=== PATIENT | female | born 1935 | race Caucasian/White ===

== ENCOUNTER 2024-03-23 18:18 | Emergency (ER) | payer MEDICARE, SELFPAY ==
[2024-03-23 18:27] VITALS: BP 144/67; BMI 29.6
[2024-03-23 18:57] LABS: % Basophils 0.6 % (0-2); % Eosinophils 11.9 % (0-6); % Lymphocytes 22.8 % (20.5-51.1); % Monocytes 9.2 % (1.7-9.3); % Neutrophils 55.5 % (42.2-75.2); Absolute Eosinophils 0.8 10^3/uL (0-0.7); Absolute Lymphocytes 1.5 10^3/uL (1.2-3.4); Absolute Monocytes 0.6 10^3/uL (0.1-0.6); Absolute Neutrophils 3.7 10^3/uL (1.4-6.5); Hematocrit 39.9 % (37.0-47.0); Hemoglobin 13.2 g/dL (12.0-16.0); Mean Corp Hgb Conc. 33.1 g/dL (33.0-37.0); Mean Corpuscular Hgb 30.4 pg (27.0-31.0); Mean Corpuscular Volume 91.9 fL (81.0-99.0); Nucleated Red Blood Cells % 0 %; Red Blood Cell Count 4.34 10^6/uL (4.20-5.40); Red Cell Dist. Width 13.1 % (11.5-14.5); White Blood Cell Count 6.6 10^3/uL (4.8-10.8)
[2024-03-23 19:14] LABS: ALT (SGPT) 26 U/L (0-35); AST (SGOT) 34 U/L (14-36); Albumin 4.2 g/dl (3.5-5.0); Alkaline Phosphatase 68 U/L (38-126); Blood Urea Nitrogen 34 mg/dl (7-17); Calcium 10.3 mg/dl (8.4-10.2); Carbon Dioxide 26 mmol/L (22-30); Chloride 106 mmol/L (98-107); Estimated Creatinine Clearance 67 ml/min; Glucose 111 mg/dl (70-99); Sodium 139 mmol/L (135-145); Total Bilirubin 0.7 mg/dl (0.2-1.3); Total Protein 7.7 g/dl (6.3-8.2); eGFR > 60.00
[2024-03-23 19:19] LABS: Troponin I < 0.012 ng/ml
[2024-03-23 22:05] VITALS: BP 180/81
--- NOTE | 2024-03-23 22:10 | ED.GENMED ---
History of Present Illness
<RONIT Neff - Last Filed: 03/23/24 22:26>
General
Chief Complaint: Fainting Sensation
Source: patient
Exam Limitations: none
Time Seen by Provider: 03/23/24 22:00
Travel History
Have you had any contact with someone who has COVID-19?: No
Do you have any symptoms of coronavirus? Fever > 100 degrees, chills, cough, shortness of breath, sore throat, loss of taste or smell, muscle aches, or headache?: No
History of Present Illness
History of Present Illness:
This is an 89 YO F with a PMH of COPD, HTN, and lower extremity edema presenting here today with fainting sensation x 5 hours. Pt reports she was at dinner, broke out in a cold sweat, and felt faint. She denies any falls or loss of consciousness.
She denies N,V, and diarrhea. She denies chest pain or SOB. She reports this has never happened before. She mentioned that she never drinks water due to being on the water pill.
Pt denies recent surgeries, hospitalizations, or trauma.
Past History
<RONIT Neff - Last Filed: 03/23/24 22:26>
Past History
ED Past Medical History: COPD, HTN and Other (chronic sinusitis, anxiety, Right diaphram paralized, IBS)
ED Past Surgical History: Appendectomy, Cholecystectomy, Gynecological (Total Hysterectomy) and Orthopedic (Right total knee replacement)
Social History
Tobacco: Non-smoker
Alcohol: None
Drug: None
Personal:
Living: with family
Employment: Not employed
Family History
Family History: Other (mother w/ stomach cancer 81 yo, father w/ prostate ca)
Phy Exam
<RONIT Neff - Last Filed: 03/23/24 22:26>
Physical Exam
Physical Exam:
Normal S1 and S2, normal rate and rhythm, breath sounds are equal bilaterally, lower extremity edema present, bilaterally
General Physical Exam
General Presentation: mild distress
General age: appears stated age
General Skin: warm and dry
General Habitus: normal
General Mental: alert
Cardiovascular Exam
Cardiovascular Exam: regular rate/rhythm and no murmur
Pulmonary Exam
Pulmonary Exam: lungs clear
Gastrointestinal Exam
Gastrointestinal Exam: non tender and soft
Course
<Aliya Perez [facility] - Last Filed: 03/23/24 22:26>
Orders/Labs/Results
Orders:
Orders
03/23/24 18:30
Electrocardiogram (*1) Urgent
Reason for Study: Chest Pain
EKG- Treatment ONCE
03/23/24 18:44
Complete Blood Count/With Diff Urgent
Comprehensive Metabolic Panel Urgent
Troponin I Urgent
03/23/24 22:20
Orthostatic VS- Treatment ONCE
03/23/24 23:00
Troponin I Urgent
Abnormal Lab Results
03/23/24
18:44
Absolute Eos (auto) 0.8 H 10^3/uL
(0-0.7)
Eosinophils % 11.9 H %
(0-6)
BUN 34 H mg/dl
(7-17)
Glucose 111 H mg/dl
(70-99)
Calcium 10.3 H mg/dl
(8.4-10.2)
03/23/24 18:44
03/23/24 18:44
Vital Signs
Initial and Last Documented VS:
Initial Vital Signs
Temp Pulse Resp BP Pulse Ox
98.2 F 71 16 144/67 99
03/23/24 18:27 03/23/24 18:27 03/23/24 18:27 03/23/24 18:27 03/23/24 18:27
Last Documented Vital Signs
Temp Pulse Resp BP Pulse Ox
98.2 F 76 23 168/92 96
03/23/24 18:27 03/23/24 23:30 03/23/24 23:30 03/23/24 22:37 03/23/24 23:30
<Virgen Ceballos, DO - Last Filed: 03/23/24 23:56>
Orders/Labs/Results
Orders:
Orders
03/23/24 18:30
Electrocardiogram (*1) Urgent
Reason for Study: Chest Pain
EKG- Treatment ONCE
03/23/24 18:44
Complete Blood Count/With Diff Urgent
Comprehensive Metabolic Panel Urgent
Troponin I Urgent
03/23/24 22:20
Orthostatic VS- Treatment ONCE
03/23/24 23:00
Troponin I Urgent
Abnormal Lab Results
03/23/24
18:44
Absolute Eos (auto) 0.8 H 10^3/uL
(0-0.7)
Eosinophils % 11.9 H %
(0-6)
BUN 34 H mg/dl
(7-17)
Glucose 111 H mg/dl
(70-99)
Calcium 10.3 H mg/dl
(8.4-10.2)
03/23/24 18:44
03/23/24 18:44
Vital Signs
Initial and Last Documented VS:
Initial Vital Signs
Temp Pulse Resp BP Pulse Ox
98.2 F 71 16 144/67 99
03/23/24 18:27 03/23/24 18:27 03/23/24 18:27 03/23/24 18:27 03/23/24 18:27
Last Documented Vital Signs
Temp Pulse Resp BP Pulse Ox
98.2 F 76 23 168/92 96
03/23/24 18:27 03/23/24 23:30 03/23/24 23:30 03/23/24 22:37 03/23/24 23:30
<RONIT Neff - Last Filed: 03/23/24 22:26>
MDM/Problems Addressed
Differential Diagnosis Includes:
Dehydration, Arrhythmia, Hypotension, Anxiety,
MDM/Problems Addressed:
Faint, lightheaded since 5:30 P.M.
Chronic conditions affecting care: HTN and COPD
<RONIT Neff - Last Filed: 03/23/24 22:26>
*Critical Care Note
Total Time (30-74mins, 75-104mins- exclusive of procedures): Not Applicable
<Virgen Ceballos DO - Last Filed: 03/23/24 23:56>
*Pulse Oximetry
Patient hypoxic: no
*EKG
Interpreted by ED Provider?: Yes
Interpretation: normal
Comparison EKG: no changes
Rate: normal
Rhythm: sinus
[place]: normal axis
Interval: normal interval
QRS Pattern: normal QRS
Ischemia: no ischemia
*[employer] Interpretation
Rate: normal
Interpretation: normal
Rhythm: sinus
ED Attending Note
<RONIT Neff - Last Filed: 03/23/24 22:26>
-
Portions of this chart may have been created with voice recognition software.� Occasional wrong word or��sound alike� substitutions may have occurred due to the inherent limitations of voice recognition software.
<Virgen Ceballos DO - Last Filed: 03/23/24 23:56>
ED Attending Note
Patient seen and examined by attending physician: Yes
I performed the substantive portion of visit, reviewed & personally made and approve the management plan that is documented in note by myself or GERMAN.: Yes
I performed a history and physical exam of patient and discussed management with resident, I reviewed resident's note and agree with documented findings and plan of care.: Yes
ED Attending Note:
This is a eufemia 89-year-old woman who has history of hypertension, COPD, chronic bilateral lower extremity edema who resides in independent living at [facility]. While at dinner tonight around 6 PM, while eating soup patient developed sudden
onset of profuse diaphoresis, lightheadedness, feeling that she was going to pass out. She denies chest pain or palpitations, no shortness of breath, no nausea nor vomiting, no abdominal nor back pain. She repositioned herself, lowering her head
to her knees and slowly began to feel better. Overall symptoms lasted perhaps 10 minutes. She was evaluated by commanding officer motorized squad from [facility] and was noted to have an elevated blood pressure with systolic over 200 but she admits that she was already
starting to feel improved when EMS arrived. Prehospital Accu-Chek 127.
No history of similar episodes in the past and since that episode patient has been feeling well without recurrence.
She denies recent change in medications, no recent GI illness. No change in weight. Her appetite has been good, she has not skipped any meals recently.
She does admit to feeling somewhat hot over the past 2 days with hot humid weather and has avoided turning on her air conditioner due to concerns within feeling too cold.
She also admits to chronically limited oral intake 'I do not drink water' due to chronic urinary frequency.
Previous ED records note most recent previous ED visit April 2021 with complaints of diarrhea, bloody stools, CAT scan showed colitis with treated with outpatient antibiotics without recurrence.
GENERAL: 89-year-old woman appears her stated age, bright and alert, pleasant, appears in no acute distress.
EYE: pupils equal and reactive. anicteric
NECK: Supple, nontender, no meningismus, no significant adenopathy.
ENT: posterior pharynx is clear, oral mucosa is minimally dry. No rhinorrhea.
CARDIAC: Regular rate and rhythm. no murmur.
LUNGS: Clear breath sounds bilaterally, no acute respiratory distress, no wheezes/rales/rhonchi
ABDOMEN: Rotund, soft, nondistended, without focal tenderness, no r/g, no cvat. normoactive BS.
NEUROLOGICAL: Alert and oriented x3, no focal neuro deficits. Cranial nerves II through XII grossly intact. Motor strength 5/5 bilaterally. Gross sensation is intact.
SKIN: Warm and dry, normal color, skin intact. No rash.
MUSCULOSKELETAL: Mild to moderate chronic appearing nonpitting edema bilateral lower extremities, peripheral pulses are full and equal b/l. No palpable tenderness.
PSYCH: Normal and appropriate interaction.
History and exam concerning for near syncopal event. Concern for vasovagal episode, tachy-arrhythmia, electrolyte abnormality, ACS. Acute neurologic event is less likely.
It is reassuring that patient has been asymptomatic since arrival to the ED near 4 hours ago.
Labs showed normal CBC. Chemistries are unremarkable save for moderately elevated BUN of 34 which has trended up from previous and what appears to be her baseline BUN of 20-25.
Troponin is negative.
EKG shows normal sinus rhythm, normal axis, normal intervals, no acute ST-T wave abnormalities. Overall similar and unchanged from previous EKG 2019 save for heart rate has decreased from 92 to now 71.
Monitor shows normal sinus rhythm without ectopy.
Will check orthostatic vital signs and plan to repeat troponin.
Would recommend increasing fluid intake as near syncopal event may be mild dehydration in nature.
03/23/2024 2355 PM
Patient remains asymptomatic and eager to be discharged to home.
Orthostatic vital signs are negative.
Repeat troponin is negative.
Monitor continues to show normal sinus rhythm without ectopy.
As above, recommend patient increase her clear liquid intake on a daily basis.
Prompt follow-up with PCP at [facility] for recheck.
Return precautions discussed.
Discharge Plan
Departure
Patient Disposition: Home (Routine Discharge)
Date of Disposition: 03/23/24
Time of Disposition: 23:52
Patient with high blood pressure during this ER visit?: No
Condition: Good
Discharge Problem:
Near syncope
Instructions: Near Fainting (DC)
Prescriptions:
No Action
losartan 50 MG tablet
50 mg PO DAILY
aspirin 81 MG tablet,delayed release (DR/EC)
81 mg PO Q48H
furosemide 20 MG tablet
20 mg PO Q48H
ipratropium bromide 1 SPRAY spray,non-aerosol
1 spray intranasal DAILY
budesonide-formoterol [Symbicort] 1 PUFF HFA aerosol inhaler
2 puff inhalation R BID
cholecalciferol (vitamin D3) 2,000 UNITS tablet
2,000 units PO DAILY
propylene glycol [Systane Balance] 10 ML drops
1 drp BOTH EYES DAILY
levofloxacin 500 MG tablet
500 mg PO DAILY Qty: 9 0RF
metronidazole 500 MG tablet
500 mg PO TID Qty: 29 0RF
Referrals:
Kassie Trotter CRNP [Family Provider] - Call in 1-3 days for appt
Activity Restrictions/Additional Instructions:
I want you to try and increase your clear liquid intake on a daily basis, add 1 glass of water or decaffeinated tea/flavored water on a daily basis.
Follow-up with your primary care physician for recheck.
Interventions
Interventions:
*Risk Screen - Suicide Last Done: 03/23/24 18:27
*General Assessment Last Done: 03/23/24 22:06
*Neglect/Abuse Screening Last Done: 03/23/24 18:27
ED- Fall Risk Assessment Last Done: 03/23/24 18:27
*ED COVID-19 Vaccine History Last Done: 03/23/24 22:06
ED- Cardiac Assessment Last Done: 03/23/24 22:07
ED- Neurological Assessment Last Done: 03/23/24 22:07
Discharge Date and Time
Print Language: ARABIC
[2024-03-23 22:32] VITALS: BP 157/81
[2024-03-23 22:34] VITALS: BP 180/81
[2024-03-23 22:37] VITALS: BP 168/92
[2024-03-23 22:39] VITALS: BP 157/81; BP 168/92; BP 180/81; PULSE 70; PULSE 79; PULSE 81
[2024-03-23 23:38] LABS: Troponin I < 0.012 ng/ml
== END 2024-03-23 23:57 | disposition home or self-care (01) ==
LOC: EMR 18:18
PROVIDERS: Emergency Medicine; EMERGENCY PHYSICIAN Emergency Medicine; FAMILY PHYSICIAN Nurse Practitioner Family
DX: R55 Syncope and collapse (principal); R60.0 Localized edema; J44.9 Chronic obstructive pulmonary disease, unspecified; R35.0 Frequency of micturition; I10 Essential (primary) hypertension; J32.9 Chronic sinusitis, unspecified; F41.9 Anxiety disorder, unspecified; K58.9 Irritable bowel syndrome, unspecified; Z96.651 Presence of right artificial knee joint; Z90.49 Acquired absence of other specified parts of digestive tract; Z88.8 Allergy status to other drugs, medicaments and biological substances; Z91.048 Other nonmedicinal substance allergy status
CPT/HCPCS: 99284; 80053; 84484; 85025; 93005